=== PATIENT | male | born 1970 | race Hispanic/Latino ===

== ENCOUNTER 2018-10-15 21:28 | Emergency (ER) | payer BC ==
[2018-10-15] MEDS ORDERED: Lidocaine 1% PF 5 ML VIAL ONE (23:01)
--- NOTE | 2018-10-15 23:04 | RAD ---
LEFT HAND THREE VIEWS: History: Injury, left hand pain. FINDINGS/IMPRESSION: No fracture or dislocation is seen. No radiopaque foreign body is identified. POS: H
[2018-10-15] MEDS ORDERED: Adacel (T-DAP) 0.5 ML SYRINGE ONE (23:29)
== END 2018-10-16 00:15 | disposition home or self-care (01) ==
LOC: ERS 21:28
DX: S61.412A Laceration without foreign body of left hand, initial encounter (principal); W26.9XXA Contact with unspecified sharp object(s), initial encounter
CPT/HCPCS: 12001; 90471; 90715; J2001

== ENCOUNTER 2018-10-18 02:26 | Outpatient (CLI) | payer OTHER, BC ==
[2018-10-18 10:25] LABS: Hemoglobin 15.1 g/dL (14.0-18.0); Mean Corpuscular HGB CONC 33.2 g/dL (32.0-36.0); Mean Corpuscular Hemoglobin 30.3 pg (27.0-31.0); Mean Corpuscular Volume 91.2 fL (78.0-98.0); Platelet Count 170 thou/uL (130-400); RBC Distribution Width 11.6 % (11.5-14.5); Red Blood Cell (RBC) Count 4.97 mill/uL (4.70-6.10); White Blood Cell (WBC) Count 6.5 thou/uL (4.8-10.8)
[2018-10-18 10:46] LABS: Anion Gap 10 mmol/L (10-20); BUN (Urea Nitrogen) 15 mg/dL (8.9-20.6); Calc. Creatinine Clearance 0 mL/min (70-130); Calcium 9.1 mg/dL (7.8-10.44); Carbon Dioxide 26 mmol/L (22-29); Chloride 105 mmol/L (98-107); Estimated GFR-MDRD Greater than 90; Glucose 116 mg/dL (70-105); Potassium 3.7 mmol/L (3.5-5.1); Sodium 137 mmol/L (136-145)
== END 2018-10-18 02:27 | disposition home or self-care (01) ==
LOC: LABBT 02:26
PROVIDERS: ATTEND Orthopaedic Surgery
DX: Z01.818 Encounter for other preprocedural examination (principal); S66.323A Laceration of extensor muscle, fascia and tendon of left middle finger at wrist and hand level, initial encounter
CPT/HCPCS: 80048; 85027; 93005; 93010